=== PATIENT | male | born 1945 | race Caucasian/White ===

== ENCOUNTER → 2023-11-18 11:25 | Outpatient (REF) | payer MEDICARE, OTHER, SELFPAY | LOC: RCS 11:25 | PROVIDERS: ATTENDING PHYSICIAN Nurse Practitioner; FAMILY PHYSICIAN Family Medicine | DX: I48.0 Paroxysmal atrial fibrillation (principal); I10 Essential (primary) hypertension; Z95.2 Presence of prosthetic heart valve | CPT/HCPCS: 93306 ==